=== PATIENT | female | born 1985 | race Caucasian/White ===

== ENCOUNTER 2023-02-24 18:03 | Emergency (ER) | payer OTHER, SELFPAY ==
[2023-02-24 18:05] VITALS: BP 168/105; PULSE 73; RESP 16; TEMP 37.6; O2SAT 100
--- NOTE | 2023-02-24 19:12 | W.ED.GENAD ---
Discharge Plan Disposition Patient Disposition: Home Discharge Details Primary Care Provider: None,None ED Provider: Fidencio Vieira Home Meds and New Rx's Prescriptions: New amoxicillin-pot clavulanate 875-125 mg tablet 1 tab PO BID 7 Days Qty: 14 0RF Discharge Instructions Instructions: Animal Bite (ED) Additional Instructions: You were seen in the emergency department for your dog bite. Your x-ray showed no sign of any foreign bodies. Please take these antibiotics as directed. Please return to the emergency department if you develop fevers foul-smelling drainage or streaking signs of infection. Please wear this splint for 5 days to help your lacerations heal. Please return to the emergency department if you develop worsening pain. The form you have completed will be shared with the animal physiology teacher. You will receive a call back if there is concerns for rabies and the dog that bit you. Please follow-up by phone later this week with the local animal physiology teacher for the [facility].: Melissa [facility] Control OfficerContact [email or web address] For your pain please take medications as follows: 1. Take acetaminophen (Tylenol), 1,000 mg (two 500 mg tabs) every 6 hours 2. Take ibuprofen (Advil), 400 mg every 6 hours. Discharge Data Discharge Date/Time-TO BE ENTERED AT DEPARTURE: 02/24/23 20:51 HPI General Date/Time Provider Initiated Documentation: 02/24/23 19:11. HPI Narrative: MDM This is an overall well-appearing afebrile and not tachycardic [id number] 37-year-old female with puncture wound to left forearm from dog for which she will receive amoxicillin clavulanic acid following x-ray to ensure that she does not have any acute osseous abnormalities. Will also assess for any retained teeth. Will allow to heal by secondary intention given dog bite. Will provide return indications including any fevers foul-smelling drainage and streaking signs of infection. Patient's wound was irrigated extensively in the emergency department by emergency department nurse Nhan. The dog is owned locally. Patient reports that she was in touch with the dog's class 1 owner operator who reported that the dog was up-to-date with vaccines. Patient has completed the animal bite form. Given that the dog will be observed by class 1 owner operator will defer rabies at this point in time. I passed along the contact information for the animal physiology teacher of [place]. I returned the completed animal bite form to health hospital unit coordinator Leatha. 8:28 PM No evidence of acute fracture. No reported foreign bodies. Patient understood her return indications and we will proceed with empiric trial of expectant outpatient management. Chronic conditions affecting the care of the patient: N/A History obtained from an outside historian: N/A External record review: N/A Medications: Amoxicillin clavulanic acid, ibuprofen, acetaminophen Social determinants of health affecting disposition: N/A Management discussed with: N/A Treatment/interventions considered: N/A Response to therapies provided: N/A HPI This is a previously healthy [id number] 37-year-old female arrived to the emergency department in the setting of dog bite to her left forearm that she sustained earlier this afternoon. 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 She reports that the dog is owned locally. The dog's class 1 owner operator reports that the dog is up-to-date on the dog's shots. Patient does tell me that her tetanus was updated earlier this year. She has had pain in her left forearm but not in her left hand. She did fall but she did not strike her head nor lose consciousness. She denies routine tobacco, ethanol, and illicits. Exam General: Well-appearing in no acute distress speaking in complete sentences. Head: Normocephalic, atraumatic. Eye: Extraocular eye movements intact. No conjunctival injection. No scleral icterus. Ear, nose, mouth, throat: Grossly normal inspection. Normal voice, handling secretions normally. Neck: Trachea midline. Cardiovascular: Well-perfused distal extremities. Respiratory: Nonlabored respiration. Gastrointestinal: Nondistended abdomen. Musculoskeletal: left forearm has an approximately 0.5 cm puncture wound the puncture wounds each measure 0.5 cm and they are on the mid forearm both the radial and ulnar aspects. Left hand warm and well-perfused with 2+ left radial pulse. Sensation motor function intact in the left hand across the radial, median, and ulnar nerve distributions. Forearm compartments soft. Skin: Normal for age and race, grossly normal temperature and turgor. No acute rash. Neurologic: Alert and appropriate, no apparent acute deficits. Psychiatric: Mood and manner are appropriate. Grooming and personal hygiene are appropriate. Related Data Home Medications Medication Instructions Recorded Confirmed amoxicillin 875 mg-potassium 1 tab PO BID 7 days #14 tabs 02/24/23 clavulanate 125 mg tablet Previous Rx's Medication Instructions Recorded amoxicillin 875 mg-potassium 1 tab PO BID 7 days #14 tabs 02/24/23 clavulanate 125 mg tablet General Stated Complaint: AnimalBite JANELLE: 3 PFSH Social History Smoking/Tobacco Use Status: Never Smoking risk assessment performed?: Yes Substance use type: does not use Course Vital Signs Vital signs: Vital Signs Temperature 37.6 C H 02/24/23 18:05 Pulse 73 02/24/23 18:05 Respiratory Rate 16 02/24/23 18:05 Blood Pressure 168/105 H 02/24/23 18:05 Pulse Oximetry 100 02/24/23 18:05 Temperature 37.6 C H 02/24/23 18:05 Temperature Source Temporal Artery Scan 02/24/23 18:05 Pulse 73 02/24/23 18:05 Respiratory Rate 16 02/24/23 18:05 Blood Pressure 168/105 H 02/24/23 18:05 Blood Pressure Position Sitting 02/24/23 18:05 Pulse Oximetry 100 02/24/23 18:05 Oxygen Delivery Method Room Air 02/24/23 18:05 Oxygen Flow Rate 0 02/24/23 18:05
--- NOTE | 2023-02-24 19:15 | DI.RAD_ITS ---
Exam(s) XR FOREARM LT EXAM: XR FOREARM LT CLINICAL HISTORY: Puncture Woundsleft forearm radial and ulnar aspec. TECHNIQUE: 2D digital imaging was performed. COMPARISON: No exams were available for comparison FINDINGS: Two views No evidence of fracture or dislocation. No elbow joint effusion. Bone density normal. No osseous l esions. IMPRESSION: No significant osseous findings in the forearm bones. DATA REPOSITORY: RADIATION DOSE DELIVERED:
[2023-02-24] MEDS: Amoxicillin 875/Clav. 125 TAB PO (19:30)
[2023-02-24] MEDS: Acetaminophen 500 MG TAB 1000 MG PO (19:30)
[2023-02-24] MEDS: Ibuprofen 600 MG TAB PO (19:30)
--- NOTE | 2023-02-24 20:16 | DI.VRAD_ITS ---
PROCEDURE INFORMATION: Exam: XR Left Forearm Exam date and time: 02/24/2023 7:40 PM Age: 37 years old Clinical indication: Injury or trauma; Other: Puncture wounds left forearm radial and ulnar aspec; Arm, lower TECHNIQUE: Imaging protocol: Radiologic exam of the left forearm. Views: 2 views. COMPARISON: No relevant prior studies available. FINDINGS: Bones/joints: There is no evidence of acute fracture.There is no evidence of malalignment or dislocation. Soft tissues: Soft tissue swelling of the forearm IMPRESSION: There is no evidence of acute fracture.There is no evidence of malalignment or dislocation. Dictated and Authenticated by: Lee Loredo MD. Ordering:IRWIN Nicolas MD
--- NOTE | 2023-02-24 20:49 | NUR.NOTE ---
Animal bite form filled out and sent to [facility] health officer .
== END 2023-02-24 20:51 | disposition home or self-care (01) ==
PROVIDERS: Emergency Provider Emergency Medicine
DX: S51.832A Puncture wound without foreign body of left forearm, initial encounter (principal); W54.0XXA Bitten by dog, initial encounter; Y93.01 Activity, walking, marching and hiking; Y92.414 Local residential or business street as the place of occurrence of the external cause; Y99.0 Civilian activity done for income or pay
CPT/HCPCS: 99283; 73090